=== PATIENT | female | born 1970 | race Caucasian/White ===

== ENCOUNTER → 2018-07-20 | Outpatient (REF) ==
[~2018-07-20] MED LIST: IBU800 M1 PO; METFORMIN1000 MG PO
== END ==
LOC: ZLAB.WCH 14:24
DX: Z01.89 Encounter for other specified special examinations (principal)

== ENCOUNTER → 2018-07-26 | Outpatient (REF) | LOC: ZLAB.WCH 08:52 | DX: Z01.89 Encounter for other specified special examinations (principal) ==